=== PATIENT | male | born 2000 | race African-American/Black ===

== ENCOUNTER 2021-09-01 11:54 | Emergency (ER) | payer SELFPAY ==
[~2021-09-01] VITALS: Ht 170.2 cm; Wt 68.0 kg
[2021-09-01] MEDS ORDERED: IV NS 0.9% 1,000 ML BAG IV ONE (12:00)
--- NOTE | 2021-09-01 12:13 | NUR ---
BIBS C/O SOB AND CHEST TIGHTNESS SINCE LAST NIGHT. HX OF ASTHMA. PT WANTS ALBUTEROL REFILL. AAOX4, SPEAKS CLEARLY IN FULL SENTENCES, BREATHING EVEN AND UNLABORED, WHEEZES HEARD ON BILATERAL LUNGS. PULSE OX ON RA 100%.
[2021-09-01] MEDS: IPRATROPIUM NEB FS 0.5 MG/2.5 ML AMPUL.NEB NEB ONE ×2 (12:16→13:05)
[2021-09-01] MEDS: predniSONE 20 MG TABLET PO ONE ×2 (12:16→12:29)
[2021-09-01] MEDS: ALBUTEROL FS 2.5 MG/3 ML VIAL.NEB CONTNEB ONE ×2 (12:16→13:05)
[2021-09-01] MEDS ORDERED: PRED20TA PO (12:23)
[2021-09-01] MEDS ORDERED: ALBU18HF2 INH (12:23)
[2021-09-01] MEDS ORDERED: predniSONE 20 MG TABLET ONE (12:34)
[2021-09-01] MEDS ORDERED: ALBUTEROL FS 2.5 MG/3 ML VIAL.NEB ONE (12:56)
[2021-09-01] MEDS ORDERED: IPRATROPIUM NEB FS 0.5 MG/2.5 ML AMPUL.NEB ONE (12:56)
--- NOTE | 2021-09-01 12:57 | NUR ---
RESPIRATORY THERAPIST AT BEDSIDE
--- NOTE | 2021-09-01 13:30 | NUR ---
PT RECEIVING BREATHING TREATMENT. TOLERATING WELL.
--- NOTE | 2021-09-01 13:53 | NUR ---
PT TOLERATING BREATHING TREATMENT WELL. BREATHING EVEN AND UNLABORED. BLANKET GIVEN
[2021-09-01 14:11] VITALS: BP 124/68
--- NOTE | 2021-09-01 14:11 | NUR ---
Patient discharged to home in stable condition. Written and verbal after care instructions given. Patient verbalizes understanding of instruction.
== END 2021-09-01 14:11 | disposition home or self-care (01) ==
LOC: ER 12:01
DX: J45.901 Unspecified asthma with (acute) exacerbation (principal); Z60.2 Problems related to living alone
CPT/HCPCS: 94644; 99285; J7512